=== PATIENT | female | born 1950 | race Caucasian/White ===

== ENCOUNTER 2016-09-20 07:58 | Observation (INO) | payer BC ==
[2016-09-20 08:39] LABS: Hematocrit 44 % (35-47); Hemoglobin 14.6 g/dl (12.0-16.0); Mean Corpuscular HGB Conc 33 g/dl (31-36); Mean Corpuscular Hemoglobin 29 pg (27-31); Mean Corpuscular Volume 88 fL (80-97); Mean Platelet Volume 10 um3 (7.4-10.4); Red Blood Count 4.99 10^6/ul (4.0-5.4); Red Cell Distribution Width 13 % (10.5-15); White Blood Count 6.6 10^3/ul (3.5-10.8)
[2016-09-20] MEDS ORDERED: Ketorolac INJ* 30 MG/ML 1 ML VIAL IV PUSH ONE (08:50)
[2016-09-20] MEDS ORDERED: NS 0.9% 1000 ML* 2,000 ML IV ONE (08:50)
[2016-09-20 08:55] LABS: ALT 25 U/L (7-52); Alkaline Phosphatase 42 U/L (34-104); BUN/Creatinine Ratio 31.6 (8-20); Blood Urea Nitrogen 24 mg/dL (6-24); CO2 Carbon Dioxide 22 mmol/L (22-32); Calcium 9.1 mg/dL (8.6-10.3); Chloride 104 mmol/L (101-111); EGFR African American 98.8 (>60); EGFR Non-African American 76.9 (>60); Globulin 3.1 g/dL (2-4); Glucose 94 mg/dL (70-100); Sodium 138 mmol/L (133-145); Total Protein 7.1 g/dL (6.4-8.9)
[2016-09-20 08:56] LABS: Troponin I 0.01 ng/mL (<0.04)
[2016-09-20] MEDS ORDERED: Potassium Chlor TAB* 20 MEQ TAB.ER PO ONE (10:48)
--- NOTE | 2016-09-20 10:51 | RAD ---
HISTORY: Dizziness COMPARISONS: April 10, 2006 VIEWS:1: Single frontal portable view of the chest at 10:15 AM FINDINGS: LINES AND TUBES: None. CARDIOMEDIASTINAL SILHOUETTE: The cardiomediastinal silhouette is normal for portable technique. PLEURA: The costophrenic angles are sharp. No pleural abnormalities are noted. LUNG PARENCHYMA: There is hyperinflation. ABDOMEN: The upper abdomen is clear. There is no subphrenic gas. BONES AND SOFT TISSUES: No bone or soft tissue abnormalities are noted. IMPRESSION: HYPERINFLATION. NO ACTIVE CARDIOPULMONARY DISEASE.
[2016-09-20] MEDS ORDERED: Ondansetron INJ* 2 MG/ML VIAL ONE (11:56)
[2016-09-20] MEDS ORDERED: Ondansetron INJ* 2 MG/ML VIAL IV ONE (12:01)
[2016-09-20 13:34] LABS: Urine Bilirubin Negative (Negative); Urine Glucose Negative (Negative); Urine Nitrite Negative (Negative)
--- NOTE | 2016-09-20 14:01 | RAD ---
HISTORY: Dizziness COMPARISONS: None TECHNIQUE: Multiple contiguous axial CT scans were obtained of the head without intravenous contrast. FINDINGS: HEMORRHAGE/INFARCT: There is no hemorrhage or acute infarct. MASSES/SHIFT: There is no mass or shift. EXTRA-AXIAL SPACES: There is an arachnoid cyst along the torcula. SULCI AND VENTRICLES: The sulci and ventricles are normal in size and position for the patient's stated age. CEREBRUM: There are no focal parenchymal abnormalities. BRAINSTEM: There are no focal parenchymal abnormalities. CEREBELLUM: There are no focal parenchymal abnormalities. VESSELS: The vessels are grossly normal. PARANASAL SINUSES: The paranasal sinuses are clear. ORBITS: The orbits are unremarkable. BONES AND SOFT TISSUE: No bone or soft tissue abnormalities are noted. OTHER: None IMPRESSION: NO ACUTE INTRACRANIAL PATHOLOGY.
[2016-09-20] MEDS ORDERED: NS 0.9% 1000 ML* 1,000 ML IV SCH (15:15)
[2016-09-20] MEDS: Meclizine TAB* 12.5 MG PO SCH ×2 (17:22→23:25)
[2016-09-20] MEDS: Potassium Chloride LIQUID* 20 MEQ PACKET PO ONE ×2 (17:22→19:22)
[2016-09-20] MEDS: Acetaminophen TAB* 325 MG PO PRN (17:22)
[2016-09-20] MEDS: Ondansetron INJ* 2 MG/ML VIAL IV PRN (17:28)
--- NOTE | 2016-09-20 18:44 | HP ---
ATTENDING PHYSICIAN ADDENDUM INCLUDED ON THIS REPORT HISTORY AND PHYSICAL: DATE OF ADMISSION: 09/20/16 PRIMARY CARE PROVIDER: Dr. Tracee Lee. ATTENDING PHYSICIAN WHILE IN THE HOSPITAL: Jessenia Westbrook MD* (report dictated by Amaury Tariq NP). CHIEF COMPLAINT: Dizziness. HISTORY OF PRESENT ILLNESS: Ms. Gordon is a 65-year-old female patient who denies having any medical problems. She comes in and says that over the weekend , she was not feeling well. She was feeling weak, feeling tired. She states just her legs ached. She got a headache on Saturday, it got worse if she bent forward, behind her eyes. She said that on Saturday night and Saturday she was having body aches. She was trying to drink fluids. She was having a headache. She said that if she leaned forward and she went to stand back up, she started feeling dizzy like the room was spinning. Her appetite was down. She vomited once this morning. She says she was feeling better this morning. She swung her legs out over the bed and then when she went to stand up, she noticed that the room was spinning and she felt very dizzy. She did not pass out. She denied having any speech changes. Denied having any weaknesses to one side and she said when she went to walk, she felt like she was walking on a ship that was in the sea. She says that she has not had any fevers or chills. She does admit to having some left ear pain over the weekend. The patient denied any chills. She was concerned, came into the ER. She was evaluated in the ER, she was found to have a bilateral cerumen impaction, this was cleaned up, but her symptoms did not improve. Hospitalist service was asked to evaluate for admission. PAST MEDICAL HISTORY: Denied. PAST SURGICAL HISTORY: She has had a tubal ligation. HOME MEDICATIONS: Denied. ALLERGIES TO MEDICATIONS: Include no known drug allergies. FAMILY HISTORY: Mother had a history of CVA and colon cancer. Father's history is unknown. SOCIAL HISTORY: She is a pack a day smoker for about 30 years. She quit 3 days ago she says. She rarely drinks alcohol. Surrogate decision maker is her child, her daughter particularly. REVIEW OF SYSTEMS: There is no documented fever. She denied having any significant weight change. There was no double vision. There is no ear discharge now. She denies any rhinorrhea or sore throat. She did admit to having no cough. No shortness of breath. There was one episode of nausea and vomiting. No dysuria. No frequencies. No loss of consciousness. No pruritus and no skin ulcerations. Review of 14 systems completed, all others negative. PHYSICAL EXAMINATION GENERAL: At this time, Ms. Gordon is a 65-year-old female patient. She is sitting in the ER stretcher. She does not appear to be in any acute distress. VITAL SIGNS: Blood pressure 129/79 with a pulse of 76, respirations 18, O2 sat 100%, and temperature 99.5. HEENT: Head: Atraumatic and normocephalic. Eyes: EOMs intact. Sclerae anicteric and not pale. Throat: Oral mucosa appears to be moist. No oropharyngeal erythema. NECK: Supple. LUNGS: Clear to auscultation bilaterally. No wheezes, rales, or rhonchi. HEART: Sounds S1, S2. Regular rate and rhythm. No murmurs, rubs, or gallops. ABDOMEN: Soft, flat, and nontender. Bowel sounds present. EXTREMITIES: Pulses 2+ throughout. Able to move all 4 extremities with 5/5 strength. NEUROLOGIC: The patient is awake, alert, and oriented x3. Tongue midline. Field Operator are equal. No gross focal deficits. SKIN: Grossly intact. LABORATORY DATA AND DIAGNOSTIC STUDIES: Today revealed a WBC of 6.6, RBC of 4.99, hemoglobin 14.6, hematocrit of 44, and platelet count of 111. The sodium was 138, potassium was 3.1, the bicarb was 22, BUN 24, creatinine of 0.76, glucose of 94, lactic 1.0, calcium 9.1, total bili 0.6, AST 37, alk phos 42. Troponin 0.01. Albumin of 4.0. Urine was obtained, negative. Serology obtained for flu, negative. Had a brain CT as well, which showed no acute intracranial pathology. There was a chest x-ray, which showed hyperinflation. No active cardiopulmonary disease. There was an EKG, which showed a normal sinus rhythm, rate of 61. No ST elevation or T-wave inversion were noted. Old medical records were reviewed. ASSESSMENT AND PLAN: Ms. Gordon is a 65-year-old female patient who is relatively healthy coming into the ER today with complaints of dizziness and unsteady gait. She was evaluated in the ER. There was concern because her symptoms did not improve after intervention. She will be admitted under observation status for: 1. Dizziness: I suspect that this is either vertigo or labyrinthitis in the setting of acute illness. She has not been given any meclizine yet, so I would like to try to give that, treat her with supportive care for the time being. If she does not improve tomorrow, then I would probably get an MRI and an official neuro consult, but I do not think this is a cerebellar stroke as this is very positional and she feels like the room is spinning. When she is lying flat, she feels fine and when she goes to stand up, you can tell she is dizzy and she says she feels it. She did on exam have nystagmus bilaterally to the right and to the left. After lying her flat and moving her head to the left 3 times, she had nystagmus to the left and when we moved her head to the right 3 times, she had nystagmus to the right, so I think that again this is mostly peripheral. 2. Recent viral illness: Again, we will continue with supportive care. No fever or white count here. I do not think there is a role for antibiotics currently and continue to monitor. 3. DVT prophylaxis: She will be placed on heparin subcu. 4. Code status: Full code. 5. Fluids, electrolytes, and nutrition: She can have a clear liquid diet. If she tolerates this, we will transition her to regular. TIME SPENT: Time spent on the admission was approximately 60 minutes; greater than half the time was spent [id number] with the patient obtaining my history and physical, other half the time spent going over the plan of care with the patient and implementing plan of care. I did discuss the plan of care with my attending, Dr. Westbrook; she is in agreement. AMAURY TARIQ NP ADDENDUM: DATE OF ADMISSION: 09/20/16 Ila Gordon is a very nice 65-year-old female with no significant past medical history who has had upper respiratory infection symptoms and myalgias for the past several days. She has had a low p.o. appetite and started getting positional dizziness for the past couple of days. She presents with complaints of dizziness. She is going to be observed overnight, rehydrated and treated supportively. She most likely has symptoms of labyrinthitis. For further details of the patient's presentation and plan, please see history and physical dictated by Amaury Tariq NP, on 09/20/16 with which I agree. JESSENIA WESTBROOK MD CC: Dr. Tracee Lee * [id number]/[facility] #: [id number]/[facility] #: [id number] CARLY
--- NOTE | 2016-09-20 18:52 | HP ---
HISTORY AND PHYSICAL:* ADDENDUM: DATE OF ADMISSION: 09/20/16 Ila Gordon is a very nice 65-year-old female with no significant past medical history who has had upper respiratory infection symptoms and myalgias for the past several days. She has had a low p.o. appetite and started getting positional dizziness for the past couple of days. She presents with complaints of dizziness. She is going to be observed overnight, rehydrated and treated supportively. She most likely has symptoms of labyrinthitis. For further details of the patient's presentation and plan, please see history and physical dictated by Amaury Tariq NP, on 09/20/16 with which I agree. [id number]/[facility] #: [id number] MTDGerson
[2016-09-20] MEDS: KCL 10 MEQ/50 ML IVPREMIX* 10 MEQ/50 ML BAG IV SCH ×2 (19:40→22:21)
[2016-09-20] MEDS: Heparin VIAL(*) 5000 UNITS/ML VIAL (FIVE THOUSAND) SUBCUT SCH (22:20)
[2016-09-21] MEDS: Meclizine TAB* 12.5 MG PO SCH ×3 (05:56→20:51)
[2016-09-21] MEDS: Heparin VIAL(*) 5000 UNITS/ML VIAL (FIVE THOUSAND) SUBCUT SCH ×3 (05:56→20:51)
[2016-09-21 06:27] LABS: Hematocrit 35 % (35-47); Hemoglobin 11.7 g/dl (12.0-16.0); Mean Corpuscular HGB Conc 34 g/dl (31-36); Mean Corpuscular Hemoglobin 30 pg (27-31); Mean Corpuscular Volume 89 fL (80-97); Mean Platelet Volume 10 um3 (7.4-10.4); Red Blood Count 3.93 10^6/ul (4.0-5.4); Red Cell Distribution Width 13 % (10.5-15)
[2016-09-21 06:48] LABS: BUN/Creatinine Ratio 39.3 (8-20); Calcium 8.2 mg/dL (8.6-10.3); EGFR African American 127.4 (>60); EGFR Non-African American 99.1 (>60); Potassium 3.8 mmol/L (3.5-5.0)
[2016-09-21] MEDS: Acetaminophen TAB* 325 MG PO PRN (08:11)
--- NOTE | 2016-09-21 17:13 | PN ---
Subjective Date of Service: 09/21/16 Interval History: Patient seen and examined at bedside. Patient states that she continues to have dizziness when she gets up, she is unable to explain this and reports it as feeling "drunk" Denies fever, chills, shortness of breath, chest discomfort, N/V /D. Pt also reports a headache daily for the last year with associated ear pain. She reports relief of her headache with Tylenol. She also report blurry vision. Pt reports no change in her symptoms after attempt at a "Hallpike" in the ED. Tele: Sinus rhythm to sinus maritza, rate 40-80's Family History: Unchanged from Admission Social History: Unchanged from Admission Past Medical History: Unchanged from Admission Objective Active Medications: Acetaminophen (Tylenol Tab*) 650 mg PO Q4H PRN Reason: FEVER/PAIN Heparin Sodium (Porcine) (Heparin Vial(*)) 5,000 units SUBCUT Q8HR JUNIOR Sodium Chloride (Ns 0.9% 1000 Ml*) 1,000 mls @ 100 mls/hr IV PER RATE [facility] Meclizine HCl (Antivert Tab*) 12.5 mg PO Q8HR [facility] Ondansetron HCl (Zofran Inj*) 4 mg IV Q6H PRN Reason: NAUSEA Vital Signs 09/20/16 09/20/16 09/20/16 17:12 19:50 20:03 Temperature 98.4 F 97.8 F Pulse Rate 64 58 Respiratory 20 16 16 Rate Blood Pressure 122/69 118/63 (mmHg) O2 Sat by Pulse 100 97 Oximetry 09/20/16 09/20/16 09/21/16 21:36 23:17 02:57 Temperature 98.1 F Pulse Rate 52 Respiratory 16 Rate Blood Pressure 102/56 (mmHg) O2 Sat by Pulse 99 98 98 Oximetry 09/21/16 09/21/16 09/21/16 03:43 07:40 08:00 Temperature 98.6 F 99.0 F Pulse Rate 51 56 Respiratory 16 16 17 Rate Blood Pressure 111/56 102/57 (mmHg) O2 Sat by Pulse 97 99 Oximetry 09/21/16 09/21/16 11:23 15:44 Temperature 99.6 F 98.0 F Pulse Rate 55 69 Respiratory 16 17 Rate Blood Pressure 99/53 106/64 (mmHg) O2 Sat by Pulse 100 96 Oximetry Oxygen Devices in Use Now: None Appearance: NAD, sitting up in bed Eyes: No Scleral Icterus, PERRLA Ears/Nose/Mouth/Throat: NL Teeth, Lips, Gums, Mucous Membranes Moist, - - Unable to visualize left TM due to cerumen, Right TM WNL. Tongue midline and smile symmetric Neck: NL Appearance and Movements; NL JVP, Trachea Midline Respiratory: Symmetrical Chest Expansion and Respiratory Effort, Clear to Auscultation Cardiovascular: NL Sounds; No Murmurs; No JVD, RRR Abdominal: NL Sounds; No Tenderness; No Distention Extremities: No Edema Skin: No Rash or Ulcers Neurological: Alert and Oriented x 3, NL Muscle Strength and Tone, - - Slight nystagmus noted when following an object with eyes Lines/Tubes/Other Access: Clean, Dry and Intact Peripheral IV - site benign Result Diagrams: 09/21/16 05:13 09/21/16 05:12 Additional Lab and Data: Assess/Plan/Problems-Billing Assessment: Ms. Gordon is a 65 yo female with no significant past medical history who presented to the emergency room with complaints of dizziness and unsteady gait. - Patient Problems (1) Dizziness Code(s): R42 - DIZZINESS AND GIDDINESS SNOMED Code(s): 826918306 Comment: - Pt continues to complain of dizziness when standing - Orthostasis noted in ED, but not on repeat VS - Repeat Orthostatic VS in the morning - Pt states meclizine has not yet helped with her symptoms - Reports daily headaches for a year with associated ear pain, will get a brain MRI - Neuro consult pending (2) DVT prophylaxis Code(s): [id number] - SNOMED Code(s): 813967514 Comment: - SQ heparin (3) Full code status Code(s): Z78.9 - OTHER SPECIFIED HEALTH STATUS SNOMED Code(s): 634452126 Status and Disposition: OBV to Inpatient. Discharge to home when medically stable.
--- NOTE | 2016-09-21 18:55 | RAD ---
INDICATION: Dizziness, nystagmus and headache for a year. COMPARISON: Comparison is made with a prior CT of the brain from September 20, 2016. TECHNIQUE: Sagittal T1, axial T1, T2, susceptibility, FLAIR and diffusion weighted images were obtained. FINDINGS: The ventricles, cisterns and sulci appear to be within normal limits. There are small areas of increased signal intensity on T2-weighted images in the subcortical and periventricular white matter most consistent with mild chronic small vessel ischemic changes. There is also a small extra-axial mass present adjacent to the right frontal lobe measuring 6 x 3 mm in size possibly representing a small meningioma. No other focal abnormalities or mass effect are seen. No areas of restricted diffusion are present. There is no evidence for infarct or hemorrhage. There is minimal mucosal thickening within the sphenoid sinus on the right side. The visualized portion of the paranasal sinuses and mastoid air cells otherwise appear clear. IMPRESSION: 1. SMALL EXTRA-AXIAL MASS ANTERIOR TO THE RIGHT FRONTAL LOBE SUGGESTIVE OF A SMALL MENINGIOMA. RECOMMEND A FOLLOW-UP MRI OF THE BRAIN IN 6 MONTHS TIME TO DEMONSTRATE STABILITY. 2. FINDINGS SUGGESTIVE OF MILD CHRONIC SMALL VESSEL ISCHEMIC CHANGES.
[2016-09-22] MEDS ORDERED: Meclizine TAB* 12.5 MG PO SCH
[2016-09-22] MEDS ORDERED: Amitriptyline TAB* 10 MG PO SCH
[2016-09-22] MEDS: Meclizine TAB* 12.5 MG PO SCH ×2 (05:48→14:18)
[2016-09-22] MEDS: Acetaminophen TAB* 325 MG PO PRN ×2 (05:50→09:49)
[2016-09-22] MEDS: Heparin VIAL(*) 5000 UNITS/ML VIAL (FIVE THOUSAND) SUBCUT SCH ×2 (05:59→14:09)
--- NOTE | 2016-09-22 07:51 | PN ---
Subjective Date of Service: 09/22/16 Interval History: Patient seen and examined at bedside. Ms. Gordon states she is anxious; she reports she is feeling better but now has a fever. She denies feeling feverish and denies CP, SOB, abd pain, n/v, dysuria. She reports getting up around 0400 to use the bathroom; she was accompanied by staff but felt more steady. She denies any use of walker or assistive devices. She does live alone. We discussed rechecking her temperature for accuracy, as well as seeing how she does with ambulation this AM. Telemetry: SR 60s-70s Family History: Unchanged from Admission Social History: Unchanged from Admission Past Medical History: Unchanged from Admission Objective Active Medications: Acetaminophen (Tylenol Tab*) 650 mg PO Q4H PRN PRN Reason: FEVER/PAIN Last Admin: 09/22/16 05:50 Dose: 650 mg Heparin Sodium (Porcine) (Heparin Vial(*)) 5,000 units SUBCUT Q8HR [facility] Last Admin: 09/22/16 05:59 Dose: 5,000 units Sodium Chloride (Ns 0.9% 1000 Ml*) 1,000 mls @ 100 mls/hr IV PER RATE [facility] Last Admin: 09/21/16 00:45 Dose: 100 mls/hr Meclizine HCl (Antivert Tab*) 12.5 mg PO Q8HR [facility] Last Admin: 09/22/16 05:48 Dose: 12.5 mg Ondansetron HCl (Zofran Inj*) 4 mg IV Q6H PRN PRN Reason: NAUSEA Last Admin: 09/20/16 17:28 Dose: 4 mg Vital Signs 09/21/16 09/21/16 09/21/16 08:00 11:23 15:44 Temperature 99.6 F 98.0 F Pulse Rate 55 69 Respiratory 17 16 17 Rate Blood Pressure 99/53 106/64 (mmHg) O2 Sat by Pulse 100 96 Oximetry 09/21/16 09/21/16 09/21/16 16:43 17:34 17:35 Temperature Pulse Rate 69 78 Respiratory Rate Blood Pressure 110/61 128/73 (mmHg) O2 Sat by Pulse 98 Oximetry 09/21/16 09/21/16 09/22/16 19:50 23:53 03:49 Temperature 98.9 F 98.8 F 97.9 F Pulse Rate 68 73 75 Respiratory 18 18 16 Rate Blood Pressure 120/76 99/54 107/53 (mmHg) O2 Sat by Pulse 97 98 96 Oximetry Oxygen Devices in Use Now: None Appearance: Female patient, lying in bed, in NAD, face is symmetrical Eyes: PERRLA, - - no nystagamus elicited with positional changes or when tracking objects Ears/Nose/Mouth/Throat: NL Teeth, Lips, Gums, Mucous Membranes Moist Neck: NL Appearance and Movements; NL JVP Respiratory: Symmetrical Chest Expansion and Respiratory Effort, Clear to Auscultation Cardiovascular: NL Sounds; No Murmurs; No JVD, RRR Abdominal: NL Sounds; No Tenderness; No Distention Extremities: No Edema Skin: No Rash or Ulcers Neurological: Alert and Oriented x 3, NL Muscle Strength and Tone Lines/Tubes/Other Access: Clean, Dry and Intact Peripheral IV Nutrition: Taking PO's Result Diagrams: 09/21/16 05:13 09/21/16 05:12 Additional Lab and Data: Assess/Plan/Problems-Billing Assessment: Ms. Gordon is a 65 yo female with no significant past medical history who presented to the emergency room with complaints of dizziness and unsteady gait. - Patient Problems (1) Dizziness Code(s): R42 - DIZZINESS AND GIDDINESS Comment: Reports improvement in dizziness overnight and this morning. Neuro consult pending. Orthostasis initially noted in ED, but not on repeat VS. Plan to ambulate patient this AM around room and in halls to evaluate safety; patient lives alone. Continue meclizine, will add diazepam if symptoms persist. Pt reports daily DAVIS for a year with associated ear pain - MRI shows small meningioma on right as well as mild chronic small vessel ischemic changes. (2) DVT prophylaxis Code(s): [id number] - Comment: SQ heparin (3) Full code status Code(s): Z78.9 - OTHER SPECIFIED HEALTH STATUS Status and Disposition: Inpatient admission. Discharge to home when medically stable.
[2016-09-22] MEDS: Ondansetron INJ* 2 MG/ML VIAL IV PRN (09:49)
[2016-09-22] MEDS ORDERED: Diazepam TAB(*) 5 MG PO ONE (12:27)
[2016-09-22] MEDS ORDERED: Ibuprofen TAB* 600 MG PO PRN (12:54)
--- NOTE | 2016-09-22 15:55 | CONS ---
NEUROLOGY CONSULTATION: DATE OF CONSULT: 09/22/16 The patient is an inpatient on . REQUESTING PROVIDER: Anita Nichols NP REASON FOR CONSULT: Vertigo. HISTORY OF PRESENT ILLNESS: Ila Gordon is a 65-year-old woman with no significant past medical history aside from migraine headaches, who presented to the emergency department for evaluation of vertigo 2 days ago. Prior to that , for 3 or 4 days she had been at home feeling unwell with what she describes as generalized myalgias as well as feeling alternatingly hot and cold, but she denies any sore throat, nausea or vomiting at that time. On the day of admission, she went to get out of bed and when she went to stand up, she said the room began spinning. She tried to ambulate to the bathroom and had great difficulty doing so and knocked into the bathroom door. She denies any weakness or numbness of her extremities, dysarthria, dysphagia, diplopia with this episode. She did vomit several times the day before yesterday but not since. She has intermittently still been experiencing vertigo during her stay here and I was contacted for further evaluation after meclizine failed to improve her symptoms. In addition, she has had nearly daily headaches for the past 1 to 2 years. These are often present upon awakening. Initially, she denied a history of migraine headaches, but her close friend who was present in the room as well reminded her that for at least the past 5 years or so, she has had headaches where she needs to have a cold cloth on her forehead, wants to be in a dark room and will become nauseated. She has been using ibuprofen daily for these headaches as well as for neck pain for the last 1 to 2 years. Today, she also developed a headache which is throbbing in nature and is actually bothering her more than the dizziness currently. Dr. Tracee Lee is listed as being her PCP but she really does not see doctors on any kind of regular basis and has not yet seen Dr. Lee. PAST MEDICAL HISTORY: Migraine headaches, anxiety. PAST SURGICAL HISTORY: Tubal ligation. HOME MEDICATIONS: Ibuprofen p.r.n. ALLERGIES: No known drug allergies. FAMILY HISTORY: Mother with a stroke and colon cancer. Her daughter has been diagnosed with vertiginous migraine. SOCIAL HISTORY: She is a pack a day smoker for 30 years and quit during this acute illness. She rarely drinks alcohol. REVIEW OF SYSTEMS: As per the HPI except that she snores at night. No witnessed apneas PHYSICAL EXAM: Vital Signs: Temperature 98.2, blood pressure 118/67, heart rate 70, oxygen saturation 98% on room air. I note that she has a temperature of 101.8 documented at 7:24 this morning, but there has been question as to whether this is accurate or not and she did not receive Tylenol after that temperature and it was 2 hours later measured to be normal. On entering the room, Ms. Gordon is in mild distress with her head held between her hands. Her heart is in regular rate and rhythm with no murmurs, rubs, or gallops. The lungs are clear to auscultation bilaterally. She is a thin woman and there are no skin rashes or edema of the extremities. On neurologic examination, she is fully awake, alert and oriented. Speech is clear without dysarthria or aphasia. On cranial nerve testing, pupils are equal , round and reactive from 3 to 2 mm bilaterally. Versions are full without nystagmus or diplopia. Visual veras are full to confrontation. Facial sensation and musculature is full and symmetric. Hearing is intact to finger rub. The tongue protrudes in the midline and the palate elevates symmetrically. Shoulder shrug is full and symmetric. On motor examination, she has full strength in the upper and lower extremities with no pronator drift. Sensation is intact to light touch and temperature in the upper and lower extremities. Reflexes are 2+ throughout the upper and lower extremities with downgoing toes. Pltsya-dd-rfmj and zond-fg-qtfm are intact without ataxia. On Romberg testing, she sways slightly but does not break station. Her gait is narrow based, but somewhat wandering and she sidesteps to the left occasionally. A Lupe-Hallpike was performed bilaterally and was negative. DIAGNOSTIC STUDIES/LAB DATA: Laboratory data reviewed includes CBC which was notable for a low platelet count of 118, which was 111 on admission. Chemistry panel was initially unremarkable and yesterday was notable for a slightly high chloride of 113, slightly low CO2 of 21 and elevated BUN to creatinine ratio of 39.3 with calcium of 8.2. Urinalysis was negative for infection but showed 1+ ketones. Flu A and B were negative and INR was normal. Noncontrast brain CT was obtained on admission and was negative for hemorrhage. Brain MRI was obtained yesterday and was personally reviewed. This shows some minor small vessel ischemic changes and otherwise no significant findings. IMPRESSION: Ila Gordon is a 65-year-old woman with daily headaches who presented to the emergency department for evaluation of vertigo in the setting of a likely viral illness. 1. Vertigo: I think she most likely has vestibular neuritis after her viral infection. She has not responded to meclizine and I recommended Valium 5 mg to be given for her vertigo and nausea. In addition, this episode has stirred up some anxiety for her and this will be helpful in this regard as well. Her MRI was negative and she does not have concerning features in her history or examination for brainstem infarction. As an outpatient, if she does not improve back to baseline, vestibular rehab should be considered. PT evaluation here would be helpful as well for discharge planning. 2. Headaches: She has been having near daily headaches mostly in the morning for the past year or two. She has been using frequent ibuprofen, which may be contributing to medication overuse headache, but it also sounds like she has migraine headaches in the background as well. I educated her on medication overuse headache and as an outpatient recommended that she gradually try to reduce her use of any uxyu-gay-fterqzj or prescription pain medications to no more than 2 to 3 times a week for headache. In addition, we discussed preventative medications at this time and I suggested amitriptyline, which she and her daughter were in agreement with. She should be started on 10 mg at night, increasing to 20 mg after 1 week and further increasing to 30 mg in the second week as tolerated. Side effects were explained including sleepiness, constipation, dry mouth and dry eyes. For her headache acutely now, she will be given ibuprofen 600 mg. As an outpatient, she can follow up with me for her headaches and vertigo. I advised that her vertigo should improve over the course of days to weeks and if needed, she could be sent for a course of physical therapy for vestibular rehab. I will see her in 4 to 8 weeks in my office, [phone]. Thank you for this consultation. [id number]/[facility] #: [id number] CARLY
--- NOTE | 2016-09-22 17:24 | PN ---
Hospitalist Progress Note Patient reports improvement in symptoms following ibuprofen and diazepam. She has been up to walk with PT and nursing twice and feels "so much better." She would like to go home and plans to go home with her friend, Yamil, and stay with him the next few days until her follow-up with her PCP. Patient advised not to drive until cleared by her PCP or neurology. Patient also advised to not work until cleared by PCP. Patient verbalized understanding.
[2016-09-22 17:53] VITALS: BP 119/66
--- NOTE | 2016-09-23 05:50 | DS ---
MEDICINE DISCHARGE SUMMARY: DATE OF ADMISSION: 09/20/16 DATE OF DISCHARGE: 09/22/16 PROVIDER: Nickie Lai NP. ATTENDING PHYSICIAN: Dr. Arun Carrillo *(as dictated by Nickie Lai NP). PRIMARY CARE PHYSICIAN: Dr. Tracee Lee. CONSULTING PHYSICIAN: Dr. Rosalba Shore, Neurology. PRIMARY DISCHARGE DIAGNOSES: 1. Dizziness, likely secondary to vestibular neuritis. 2. Concern for sleep apnea. SECONDARY DISCHARGE DIAGNOSIS: History of headaches at home. MEDICATIONS AT DISCHARGE: 1. Ibuprofen 400 mg b.i.d. p.r.n. 2. Meclizine 25 mg t.i.d. p.r.n. This is a new medication. 3. Elavil 10 mg at bedtime. After 1 week, increase dose to 20 mg. After 2 weeks, may increase to 30 mg as tolerated. Maximum dose should be 30 mg at bedtime. This is a new medication that was initiated under the direction of Neurology. DIAGNOSTIC TESTING DURING THE PATIENT'S COURSE OF STAY: CT of the brain on , impression: No acute intracranial pathology. Chest x-ray: Hyperinflation. No active cardiopulmonary disease. MRI of the brain on 09/21/16, impression: 1. Small extra-axial mass anterior to the right frontal lobe suggestive of a small meningioma. Recommend a followup MRI of the brain in 6 months' time to demonstrate stability. 2. Findings suggestive of mild chronic small vessel ischemic changes. HOSPITAL COURSE AND STAY: For further details, please refer to the full medical record and the H and P provided by nurse practitioner, Amaury Tariq, on 09/20/16. In summary, Ms. Gordon is a 65-year-old female who presented to the ER with complaints of dizziness. Prior to the dizziness, the patient reports generalized malaise and body aches as well as nausea and vomiting. Nausea and vomiting appeared to have happened once the dizziness started. The other main complaint the patient endorsed was left ear pain. There was concern for unsteady gait and the patient was admitted for further observation and evaluation. She was started on meclizine and showed little improvement and an MRI was done with same results as previously mentioned. She did demonstrate nystagmus and a Hallpike maneuver was attempted in the ER with little effect for the patient. The patient does report that she wakes up with a headache on most mornings and often takes ibuprofen. Given these findings and reports, we did consult Neurology to help guide our care for the patient. It was noted that the patient most likely has a vestibular neuritis following a viral infection. She was treated with one dose of diazepam to help with her vertigo and nausea, which the patient did respond well to. In regards to her headaches , the neurologist notes in her consult that the patient frequently uses ibuprofen which may be contributing to medication overuse headache. However, there was concern that the patient may have underlying migraine headaches as well. Per Neurology, the patient was prescribed amitriptyline to be used at nighttime as a preventative medication. Teaching was provided by myself and Dr. Shore. The patient verbalized understanding. The patient was given instructions to start on 10 mg at nighttime, increasing to 20 mg after 1 week, and further increasing to 30 mg in the second week as she tolerates the medication. The patient was advised to follow up with Neurology for her headaches and vertigo in 4 to 8 weeks. The patient will call the neurologist to make this appointment. Prior to discharge, the patient was able to demonstrate safe ambulation with nursing and with physical therapy. She is tolerating p.o. intake and she is eager to go home. She has a plan in place to go home with her friend, Trevon, who she will stay with for the next couple of days until she starts to feel better. CONCERNS AT DISCHARGE: Ms. Gordon will be discharged to home on 09/22/16 with a plan to follow up with Dr. Lee as well as Neurology. 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 DIET: Heart healthy diet. ACTIVITY: As tolerated. CONDITION: Improved, stable. DISPOSITION: To home. TIME SPENT: Time spent on this discharge was approximately 40 minutes. Again, this is only a brief summary of the patient's hospital course and stay. For full details, please refer to the full medical record. If you have any further questions or need further assistance, please feel free to contact me at . NICKIE LAI NP CC: Dr. Tracee Lee* [id number]/[facility] #: [id number] CARLY
--- NOTE | 2016-09-23 09:38 | ED ---
Ximena Thorne Matthew, scribed for Yamil Jones MD on 09/20/16 at 0909 . Influenza-Like Illness - HPI Summary HPI Summary: A 65 y/o female presents to the ED with influenza like illness for the past 5 days. The symptoms started 5 days ago as body aches. On 09/16, the symptoms mild improved. Her symptoms then began to worsen with associated decreased appetite, vomiting, headache, diaphoresis, mild SOB, and mild cough. This morning, the patient has begun to experience dizziness that worsens when she sits up or moving. The dizziness was described as the room spinning with associated unsteady gait. The patient denies fever, chills, abdominal pain, chest pain, sore throat, urinary symptoms, blood w/ stool, and focal deficits. The patient received her flu shot this year. She has a Hx of chronic neck pain. - History of Current Complaint Chief Complaint: EDDizziness Time Seen by Provider: 09/20/16 08:13 Hx Obtained From: Patient Onset/Duration: Gradual Onset, Lasting Days, Still Present Severity: Moderate Associated Signs & Symptoms: Myalgia - Diffuse body aches, Cough - mild, Headache, Vomiting - Allergy/Home Medications Allergies/Adverse Reactions: Allergies Allergy/AdvReac Type Severity Reaction Status Date / Time No Known Allergies Allergy Verified 05/28/12 09:01 PMH/Surg Hx/FS Hx/Imm Hx Previously Healthy: Yes Cardiovascular History: Denies: Hx Hypertension - Cancer History Hx Chemotherapy: No Hx Radiation Therapy: No - Surgical History Surgery Procedure, Year, and Place: R hand cyst removed - benign Infectious Disease History: No Infectious Disease History: Denies: Traveled Outside the [place] in Last 30 Days - Family History Family History: No FHx of breast CA - Social History Alcohol Use: Weekly Substance Use Type: Reports: None Smoking Status (MU): Heavy Every Day Tobacco Smoker Review of Systems Constitutional: Other - decreased appetite Positive: Skin Diaphoresis. Negative: Fever, Chills Eyes: Negative Negative: Erythema ENT: Negative Negative: Sore Throat Cardiovascular: Negative Negative: Chest Pain Positive: Shortness Of Breath - mild, Cough - mild Positive: Vomiting. Negative: Abdominal Pain, Diarrhea Genitourinary: Negative Negative: dysuria, hematuria Positive: Myalgia - Diffuse body aches Skin: Negative Negative: Rash Neurological: Other - Dizziness; unsteady gait Positive: Headache Psychological: Normal All Other Systems Reviewed And Are Negative: Yes Physical Exam Triage Information Reviewed: Yes Vital Signs On Initial Exam: Initial Vitals Temp Pulse Resp BP Pulse Ox 99.5 F 89 18 126/89 99 09/20/16 08:04 09/20/16 08:04 09/20/16 08:04 09/20/16 08:04 09/20/16 08:04 Vital Signs Reviewed: Yes Appearance: Positive: Well-Appearing, No Pain Distress, Well-Nourished Skin: Positive: Warm, Dry Head/Face: Positive: Other - Normocephalic; Atraumatic Eyes: Positive: Conjunctiva Clear ENT: Positive: Normal ENT inspection Dental: Negative: Cervical Lymphadenopathy Neck: Positive: Other: - Full ROM Respiratory/Lung Sounds: Positive: Other - Normal Effort. Negative: Rales, Rhonchi, Stridor, Tracheal Deviation, Wheezes Cardiovascular: Positive: RRR. Negative: Murmur Abdomen Description: Positive: Nontender, Soft, Other: - NO rebound. Negative: Distended, Guarding Bowel Sounds: Positive: Present Musculoskeletal: Negative: Edema Left, Edema Right Neurological: Positive: Sensory/Motor Intact, Alert, Oriented to Person Place, Time, Other - Cranial nerves II-XII are grossly intact. (-) Dysmetria, (-) Nystagmus, (-) Ataxia by finger to nose testing, (-) Sensory deficit. Psychiatric: Positive: Affect/Mood Appropriate - Frank Coma Scale Coma Scale Total: 15 Procedures - Procedure Summary Procedure Summary: Left ear Cerumen disimpaction Indication: cerumen impaction Details: Peroxide warm water solution was irrigated under pressure into the ear canal repeatedly. There was no immediate return of cerumen. The cerumen was finally removed successfully with a curette. 2nd Procedure Left ear Cerumen disimpaction Indication: cerumen impaction Details: Peroxide warm water solution was irrigated under pressure into the ear canal repeatedly. There was no immediate return of cerumen. The cerumen was finally removed successfully with a curette. Diagnostics - Vital Signs Vital Signs Temp Pulse Resp BP Pulse Ox 09/20/16 08:04 99.5 F 89 18 126/89 99 - Laboratory Lab Results: Lab Results 09/20/16 Range/Units 08:30 WBC 6.6 (3.5-10.8) 10^3/ul RBC 4.99 (4.0-5.4) 10^6/ul Hgb 14.6 (12.0-16.0) g/dl Hct 44 (35-47) % MCV 88 (80-97) fL MCH 29 (27-31) pg MCHC 33 (31-36) g/dl RDW 13 (10.5-15) % Plt Count 111 L (150-450) 10^3/ul MPV 10 (7.4-10.4) um3 Neut % (Auto) 64.1 (38-83) % Lymph % (Auto) 30.9 (25-47) % [place] % (Auto) 3.7 (1-9) % Eos % (Auto) 0.7 (0-6) % Baso % (Auto) 0.6 (0-2) % Absolute Neuts (auto) 4.2 (1.5-7.7) 10^3/ul Absolute Lymphs (auto) 2.0 (1.0-4.8) 10^3/ul Absolute Monos (auto) 0.2 (0-0.8) 10^3/ul Absolute Eos (auto) 0 (0-0.6) 10^3/ul Absolute Basos (auto) 0 (0-0.2) 10^3/ul Absolute Nucleated RBC 0.01 10^3/ul Nucleated RBC % 0.1 Result Diagrams: 09/20/16 08:30 09/20/16 09:31 Lab Statement: Any lab studies that have been ordered have been reviewed, and results considered in the medical decision making process. - Radiology CXR Xray Interpretation: No Acute Changes - IMPRESSION: HYPERINFLATION. NO ACTIVE CARDIOPULMONARY DISEASE. Radiology Interpretation Completed By: Radiologist - CT Brain CT CT Interpretation: No Acute Changes - IMPRESSION: NO ACUTE INTRACRANIAL PATHOLOGY. CT Interpretation Completed By: Radiologist - EKG 14:13 Cardiac Rate: NL - 61 bpm EKG Rhythm: Sinus Rhythm ST Segment: Normal Ectopy: None Re-Evaluation - Re-Evaluation First Eval Re-Evaluation Time: 10:29 Change: Unchanged Comment: The patient's now c/o of ear pain yesterday, which has since resolved. The right ear was worse than the left ear. Second Eval Re-Evaluation Time: 13:59 Comment: DixHallpike test was negative. Flu Symptom Course/Dx - Course Assessment/Plan: She does have viral symptoms, flu like symptoms, no focal neurological deficits noted. She has a staggering gait, very unsteady and we cannot r/o cerebellar stroke. The dizziness did not improve with clearing of the cerumen impaction. - Diagnoses Provider Diagnoses: Dizziness, Cerumen impaction - Physician Notifications Discussed Care Of Patient With: Amaury Tariq (Hospitalist PA) at 14:30 -- Notified of patient's history and will admit the patient. Discharge - Discharge Plan Condition: Stable Disposition: ADMITTED TO [facility] Referrals: Tracee Lee MD [Primary Care Provider] - The documentation as recorded by the Ximena yost Matthew accurately reflects the service I personally performed and the decisions made by me, Yamil Jones MD.
== END 2016-09-22 19:05 | disposition home or self-care (01) ==
LOC: ED 07:58 → MEDTELE 15:04
PROVIDERS: ADMIT Internal Medicine; ATTEND Internal Medicine
DX: R42 Dizziness and giddiness (principal); F17.200 Nicotine dependence, unspecified, uncomplicated
CPT/HCPCS: 36415; 70450; 70551; 71010; 80048; 80053; 81003; 83605; 84484; 85025; 85610; 87502; 93005; 94760; 96374; 96375; 99284; 99406; A9270-GY; G0378; J1644; J1885; J2405; J3480